=== PATIENT | female | born 1955 | race Caucasian/White ===

== ENCOUNTER 2020-02-23 22:23 | Emergency (ER) | payer SELFPAY ==
[~2020-02-23] VITALS: Ht 152.4 cm; Wt 49.1 kg
[2020-02-23 22:29] VITALS: TEMP 98.3
[2020-02-23] MEDS ORDERED: NORCO 325 MG-51 TAB PO (23:19)
[2020-02-23 23:58] VITALS: BP 159/74; PULSE 70
== END 2020-02-23 23:58 | disposition home or self-care (01) ==
LOC: COL.ER 22:23
DX: S42.032A Displaced fracture of lateral end of left clavicle, initial encounter for closed fracture (principal); W01.10XA Fall on same level from slipping, tripping and stumbling with subsequent striking against unspecified object, initial encounter; Y92.009 Unspecified place in unspecified non-institutional (private) residence as the place of occurrence of the external cause

== ENCOUNTER → 2020-08-13 | Outpatient (CLI) | payer MEDICARE ==
[~2020-08-13] MED LIST: CELEBREX 200MG200 MG PO; CYMBALTA 60MG60 MG PO; DESYREL 50MG50 MG PO; DUO-KAPS1 CAP PO; ESTRACE 1MG1 MG/TAB PO; FLEXERIL 1010 MG/TAB PO; NORCO 325 MG-51 TAB PO; PROVENTIL0.09 MG/A1 IH; SINGULAIR 110 MG/TAB PO; SYNTHROID 0.0.025 MG PO; TYLENOL 500MG500 MG PO; VITAMIN D31000 I1 PO
== END ==
LOC: MC.RAD 08:55
DX: Z12.31 Encounter for screening mammogram for malignant neoplasm of breast (principal)

== ENCOUNTER 2020-12-20 08:33 | Day surgery (SDC) | payer MEDICARE ==
[~2020-12-20] VITALS: Ht 152.4 cm; Wt 49.8 kg
[~2020-12-20 08:33] MED LIST changes: -CELEBREX 200MG200 MG PO; -CYMBALTA 60MG60 MG PO; -DESYREL 50MG50 MG PO; -DUO-KAPS1 CAP PO; -ESTRACE 1MG1 MG/TAB PO; -FLEXERIL 1010 MG/TAB PO; -PROVENTIL0.09 MG/A1 IH; -SINGULAIR 110 MG/TAB PO; -SYNTHROID 0.0.025 MG PO; -TYLENOL 500MG500 MG PO; -VITAMIN D31000 I1 PO
[2020-12-20 09:44] VITALS: BP 118/62; PULSE 71; TEMP 97.9
[2020-12-20] MEDS ORDERED: CELEBREX 200MG200 MG PO (09:47)
[2020-12-20] MEDS ORDERED: SYNTHROID 0.0.025 MG PO (09:47)
[2020-12-20] MEDS ORDERED: FLEXERIL 1010 MG/TAB PO (09:48)
[2020-12-20] MEDS ORDERED: CYMBALTA 60MG60 MG PO (09:48)
[2020-12-20] MEDS ORDERED: DESYREL 50MG50 MG PO (09:49)
[2020-12-20] MEDS ORDERED: SINGULAIR 110 MG/TAB PO (09:49)
[2020-12-20] MEDS ORDERED: PROVENTIL0.09 MG/A1 IH (09:50)
[2020-12-20] MEDS ORDERED: ESTRACE 1MG1 MG/TAB PO (09:50)
[2020-12-20] MEDS ORDERED: TYLENOL 500MG500 MG PO (09:51)
[2020-12-20] MEDS ORDERED: DUO-KAPS1 CAP PO (09:52)
[2020-12-20] MEDS ORDERED: VITAMIN D31000 I1 PO (09:53)
--- NOTE | 2020-12-20 10:12 | NUR ---
Initial visit; Patient and her thanked Other Sales Support Worker for offering prayer and God's blessings prior to her 'procedure.'
[2020-12-20 10:20] VITALS: BP 134/67; PULSE 76; TEMP 97.4
--- NOTE | 2020-12-20 10:20 | NUR ---
Pt returns to [facility] from [facility], drowsy but awakens easily and ambulates to recliner without difficulty. VSS. at bedside. Pt given water and denies wanting to eat anything, no pain or nausea. Call light in reach.
[2020-12-20 10:35] VITALS: BP 139/69; PULSE 70
--- NOTE | 2020-12-20 10:35 | NUR ---
Pt doing well, denies needs, VSS. Dr. Murphy talks with pt and her . Call light in reach.
[2020-12-20 10:50] VITALS: BP 139/70; PULSE 66
--- NOTE | 2020-12-20 10:50 | NUR ---
Pt doing well and wanting to go home, VSS, IV discontinued to right hand. Discharge instructions provided to pt and her . Pt taken out via wheelchair and left in care of her at 1100.
== END 2020-12-20 11:00 | disposition home or self-care (01) ==
LOC: SDCO 08:33
DX: R19.4 Change in bowel habit (principal); K57.30 Diverticulosis of large intestine without perforation or abscess without bleeding; J45.909 Unspecified asthma, uncomplicated; M79.7 Fibromyalgia; G89.29 Other chronic pain; E03.9 Hypothyroidism, unspecified; M54.9 Dorsalgia, unspecified; M47.9 Spondylosis, unspecified; F32.9 Major depressive disorder, single episode, unspecified; F41.9 Anxiety disorder, unspecified; Z20.822 Contact with and (suspected) exposure to COVID-19; Z79.890 Hormone replacement therapy; Z79.899 Other long term (current) drug therapy
CPT/HCPCS: J2704; J7120